=== PATIENT | female | born 1970 | race African-American/Black ===

== ENCOUNTER 2017-11-19 18:10 | Emergency (ER) | payer MEDICAID ==
--- NOTE | 2017-11-19 18:20 | NUR ---
PT NOT IN WAITING ROOM WHEN CALLED.
[2017-11-19] MEDS ORDERED: BP PILL (19:50)
== END 2017-11-19 18:42 | disposition left against medical advice (07) ==
LOC: ER 18:11
DX: Z53.21 Procedure and treatment not carried out due to patient leaving prior to being seen by health care provider (principal)

== ENCOUNTER 2017-11-19 18:56 | Emergency (ER) | payer MEDICAID ==
[~2017-11-19] VITALS: Ht 160 cm; Wt 86.2 kg
[2017-11-19] MEDS ORDERED: BP PILL (19:50)
[2017-11-19 20:01] LABS: *BILIRUBIN,URIN NEGATIVE (NEGATIVE); *BLOOD, URINE Trace-lysed (NEGATIVE); *COLOR,URINE YELLOW (YELLOW); *KETONES,URINE NEGATIVE (NEGATIVE); *PROTEIN,URINE NEGATIVE (NEGATIVE); *UROBILINOGEN,URINE 0.2 E.U./dl (NORMAL); LEUKOCYTE ESTERASE ,URINE NEGATIVE (NEGATIVE); NITRITE, URINE NEGATIVE (NEGATIVE); PH,URINE 5.5 (5.0-8.0); UGLUCOSE NEGATIVE (NEGATIVE)
[2017-11-19 20:08] LABS: *CLARITY,URINE SLIGHTLY CLOUDY (CLEAR)
[2017-11-19 20:10] LABS: BACTERIA,URINE FEW /HPF (NONE SEEN); MUCUS,URINE MANY /LPF (0-FEW); SQUAMOUS EPITHELIAL CELL,UR MANY /HPF (NONE SEEN)
--- NOTE | 2017-11-19 21:33 | NUR ---
Patient discharged to home in stable conditon. Patient reported reduced pain prior to discharge. Written and verbal after care instructions given. Patient verbalizes understanding of instructions. Patient able to ambulate unassisted with a steady gait. Patient left with all personal belongings.
[2017-11-19 21:41] VITALS: BP 142/88
== END 2017-11-19 21:33 | disposition home or self-care (01) ==
LOC: ER 18:56
DX: R30.0 Dysuria (principal); I10 Essential (primary) hypertension; Z79.899 Other long term (current) drug therapy
CPT/HCPCS: 81001; 87210; 99284; A4663

== ENCOUNTER → 2017-11-19 | Emergency (ER) | payer MEDICAID ==
[~2017-11-19] MED LIST: BP PILL
== END | disposition left against medical advice (07) ==
LOC: ER 18:49
DX: Z53.21 Procedure and treatment not carried out due to patient leaving prior to being seen by health care provider (principal)